=== PATIENT | male | born 1985 | race Caucasian/White ===

== ENCOUNTER 2016-10-05 10:08 | Emergency (ER) | payer OTHER ==
--- NOTE | 2016-10-05 11:48 | RAD ---
HAND-RIGHT 3 VIEWS COMPARISON: None HISTORY: Pain, second through fifth metacarpals. FINDINGS: Views: Right hand PA, oblique, lateral Bones: No acute finding. Normal mineralization. Mild deformity, distal fifth minute carpal, evidence of an old fracture. Joints: Normal Soft tissues: Normal IMPRESSION: No acute finding. Old fracture, distal right fifth metacarpal.
[2016-10-05] MEDS ORDERED: KETOROLAC TROMETHAMINE 60 MG/2 ML VIAL ONE (12:09)
== END 2016-10-05 12:22 | disposition home or self-care (01) ==
LOC: ED 10:08
DX: M79.641 Pain in right hand (principal); F17.210 Nicotine dependence, cigarettes, uncomplicated
CPT/HCPCS: 73130; 99283 ×2; 96372; J1885